=== PATIENT | male | born 1985 | race Caucasian/White ===

== ENCOUNTER 2017-06-17 16:07 | Inpatient (IN) | payer MEDICARE, MEDICAID ==
[~2017-06-17] VITALS: Ht 165.1 cm; Wt 59.0 kg
[~2017-06-17 16:07] MED LIST: AMLO10TA80 PO; CARV6.2548 PO; CINA30 PO; LOSA50TA20 PO; NEPVIT PO; SEVE800T8 PO
[2017-06-17] MEDS ORDERED: HYDROCODONE/ACETAMINOPHEN 5/325MG TABLET PO ONE (23:00)
[2017-06-17] MEDS ORDERED: KETOROLAC 60MG/2ML VIAL IM ONE (23:00)
[2017-06-18 01:05] LABS: BASOPHILS % 0.7 % (0.0-2.0); EOSINOPHILS % 0.2 % (0.0-5.0); HEMOGLOBIN. 11.7 g/dL (14.0-18.0); LYMPHOCYTES % 15.6 % (20.0-50.0); MEAN CORPUSCULAR HEMOGLOBIN 30.5 pg (28.0-32.0); MEAN CORPUSCULAR VOLUME 91.5 fL (80.0-94.0); MEAN PLATELET VOLUME 8.3 fl (7.4-10.4); MONOCYTES % 7.1 % (2.0-8.0); NEUTROPHILS % 76.4 % (40.0-76.0); PLATELET 205 x1000/uL (130-400); RED BLOOD CELL COUNT 3.83 mill/uL (4.7-6.1); RED CELL DISTRIBUTION WIDTH 15.4 % (11.6-14.6)
[2017-06-18 03:00] VITALS: BP 126/86
[2017-06-18] MEDS ORDERED: LEVO75TA7 PO (03:01)
[2017-06-18] MEDS ORDERED: MORPHINE SULFATE 2 MG/ML CPJ (NOT FOR IM USE) IV PRN (03:45)
[2017-06-18] MEDS ORDERED: ENOXAPARIN 40MG/0.4ML SYR SUBCUT ONE (03:45)
[2017-06-18] MEDS ORDERED: ONDANSETRON HCL 4MG/2ML VIAL IV PRN (03:45)
[2017-06-18 04:00] VITALS: BP 128/89
[2017-06-18] MEDS: HYDROMORPHONE HCL/PF 2MG/ML CPJ IV PRN ×3 (06:31→18:41)
[2017-06-18 08:00] VITALS: BP 134/87
[2017-06-18] MEDS ORDERED: ENOXAPARIN 30MG/0.3ML SYR SUBCUT SCH (09:00)
[2017-06-18 12:00] VITALS: BP 139/96
[2017-06-18] MEDS: AMLODIPINE 10MG TABLET PO SCH (12:50)
[2017-06-18] MEDS: SEVELAMER CARBONATE 800 MG TABLET PO SCH ×2 (12:50→18:40)
[2017-06-18 16:00] VITALS: BP 134/86
[2017-06-18] MEDS: CINACALCET HCL 90MG TABLET PO SCH (18:40)
[2017-06-18 20:00] VITALS: BP 140/96
[2017-06-18] MEDS: CARVEDILOL 6.25 MG TABLET PO SCH (20:55)
[2017-06-18] MEDS ORDERED: ACETAMINOPHEN 500MG TABLET PO PRN (22:00)
[2017-06-18] MEDS ORDERED: BISACODYL 5MG TABLET PO PRN (22:00)
[2017-06-18] MEDS ORDERED: BISACODYL 10MG SUPP PR PRN (22:00)
[2017-06-18] MEDS ORDERED: GUAIFENESIN-DM 200MG-20MG/10ML UDC PO PRN (22:15)
[2017-06-18] MEDS ORDERED: DIPHENHYDRAMINE 50MG/ML VIAL IV PRN (22:15)
[2017-06-19] VITALS: BP 132/85
[2017-06-19] MEDS: HYDROMORPHONE HCL/PF 2MG/ML CPJ IV PRN ×4 (00:20→18:34)
[2017-06-19 04:00] VITALS: BP 134/87
[2017-06-19 07:30] LABS: BASOPHILS % 0.8 % (0.0-2.0); HEMATOCRIT. 31.6 % (42.0-52.0); HEMOGLOBIN. 10.5 g/dL (14.0-18.0); LYMPHOCYTES % 20.3 % (20.0-50.0); MEAN CORPUSCULAR HEMOGLOBIN 30.4 pg (28.0-32.0); MEAN CORPUSCULAR VOLUME 91.8 fL (80.0-94.0); MEAN PLATELET VOLUME 8.9 fl (7.4-10.4); MONOCYTES % 6.4 % (2.0-8.0); NEUTROPHILS % 69.5 % (40.0-76.0); PLATELET 168 x1000/uL (130-400); RED BLOOD CELL COUNT 3.44 mill/uL (4.7-6.1); RED CELL DISTRIBUTION WIDTH 15.2 % (11.6-14.6)
[2017-06-19 07:42] LABS: INR 1.2; PARTIAL THROMBOPLASTIN TIME 35.2 sec (23.4-31.0)
[2017-06-19 08:00] VITALS: BP 139/85
[2017-06-19] MEDS: AMLODIPINE 10MG TABLET PO SCH (08:30)
[2017-06-19] MEDS: CINACALCET HCL 90MG TABLET PO SCH ×2 (08:30→18:20)
[2017-06-19] MEDS: LOSARTAN POTASSIUM 50 MG TABLET PO SCH (08:31)
[2017-06-19] MEDS: FOLIC ACID/VITAMIN B COMP W-C TABLET PO SCH (08:31)
[2017-06-19] MEDS: CARVEDILOL 6.25 MG TABLET PO SCH ×2 (08:31→20:50)
[2017-06-19] MEDS: DOCUSATE SODIUM 100MG CAPSULE PO SCH ×2 (08:31→17:00)
[2017-06-19] MEDS: SEVELAMER CARBONATE 800 MG TABLET PO SCH ×3 (08:31→18:20)
[2017-06-19 08:34] LABS: PHOSPHORUS 6.7 mg/dL (2.5-4.9)
[2017-06-19] MEDS: LEVOTHYROXINE SODIUM 75MCG TABLET PO SCH (08:45)
[2017-06-19] MEDS: SODIUM POLYSTYRENE SULFONATE 15 G/60 ML BOT PO SCH ×2 (10:15→10:44)
[2017-06-19 12:00] VITALS: BP 114/70
[2017-06-19 16:00] VITALS: BP 125/89
[2017-06-19 20:00] VITALS: BP 118/75
[2017-06-20] VITALS: BP 116/72
[2017-06-20 04:00] VITALS: BP 143/70
[2017-06-20] MEDS: HYDROMORPHONE HCL/PF 2MG/ML CPJ IV PRN ×3 (06:47→21:16)
[2017-06-20 08:00] VITALS: BP 129/79
[2017-06-20] MEDS: DOCUSATE SODIUM 100MG CAPSULE PO SCH ×2 (08:27→18:08)
[2017-06-20] MEDS: CINACALCET HCL 90MG TABLET PO SCH ×2 (08:27→18:08)
[2017-06-20] MEDS: CARVEDILOL 6.25 MG TABLET PO SCH ×2 (08:28→21:15)
[2017-06-20] MEDS: LEVOTHYROXINE SODIUM 75MCG TABLET PO SCH (08:28)
[2017-06-20] MEDS: SEVELAMER CARBONATE 800 MG TABLET PO SCH ×3 (08:28→18:08)
[2017-06-20] MEDS: FOLIC ACID/VITAMIN B COMP W-C TABLET PO SCH (08:28)
[2017-06-20] MEDS: AMLODIPINE 10MG TABLET PO SCH (08:28)
[2017-06-20] MEDS: LOSARTAN POTASSIUM 50 MG TABLET PO SCH (08:32)
[2017-06-20 12:00] VITALS: BP 126/80
[2017-06-20 16:00] VITALS: BP 127/78
[2017-06-20 20:00] VITALS: BP 112/71
[2017-06-21] VITALS: BP 103/72
[2017-06-21] MEDS: HYDROMORPHONE HCL/PF 2MG/ML CPJ IV PRN ×3 (02:50→15:22)
[2017-06-21 04:00] VITALS: BP 120/79
[2017-06-21 08:00] VITALS: BP 124/93
[2017-06-21] MEDS: CARVEDILOL 6.25 MG TABLET PO SCH (08:45)
[2017-06-21] MEDS: SEVELAMER CARBONATE 800 MG TABLET PO SCH ×2 (08:45→12:38)
[2017-06-21] MEDS: DOCUSATE SODIUM 100MG CAPSULE PO SCH (08:45)
[2017-06-21] MEDS: CINACALCET HCL 90MG TABLET PO SCH (08:45)
[2017-06-21] MEDS: FOLIC ACID/VITAMIN B COMP W-C TABLET PO SCH (08:45)
[2017-06-21] MEDS: LOSARTAN POTASSIUM 50 MG TABLET PO SCH (08:46)
[2017-06-21] MEDS: LEVOTHYROXINE SODIUM 75MCG TABLET PO SCH (08:46)
[2017-06-21] MEDS: AMLODIPINE 10MG TABLET PO SCH (08:46)
[2017-06-21 12:00] VITALS: BP 115/71
[2017-06-21 16:00] VITALS: BP 115/70
[2017-06-21 17:24] VITALS: BP 115/70
== END 2017-06-21 17:45 | disposition home or self-care (01) | DRG 562 ==
LOC: ER 17:00 → 7WST 06-18 00:35 → ENRESERV 06-18 01:17
PROVIDERS: ADMIT Internal Medicine Nephrology; ATTEND Specialist
PROC: 5A1D70Z Performance of Urinary Filtration, Intermittent, Less than 6 Hours Per Day (ICD-10-PCS; principal; 2017-06-20)
DX: S42.465A Nondisplaced fracture of medial condyle of left humerus, initial encounter for closed fracture (principal); N18.6 End stage renal disease; I12.0 Hypertensive chronic kidney disease with stage 5 chronic kidney disease or end stage renal disease; E87.5 Hyperkalemia; N25.81 Secondary hyperparathyroidism of renal origin; N25.0 Renal osteodystrophy; D63.1 Anemia in chronic kidney disease; E89.0 Postprocedural hypothyroidism; Z96.641 Presence of right artificial hip joint; Z91.81 History of falling; Z99.2 Dependence on renal dialysis; Z79.899 Other long term (current) drug therapy; W51.XXXA Accidental striking against or bumped into by another person, initial encounter; Y93.89 Activity, other specified; Y92.098 Other place in other non-institutional residence as the place of occurrence of the external cause; Y99.8 Other external cause status
CPT/HCPCS: 36415; 71010; 73030; 73060; 73070; 73090; 80048; 80069; 85025; 85610; 85730; 93005; 96372; 96374; 96375; 99285; A4565; J1170; J1650; J1885; J2270; J7030

== ENCOUNTER 2022-01-14 16:43 | Emergency (ER) | payer MEDICARE, MEDICAID ==
[~2022-01-14] VITALS: Ht 152.4 cm; Wt 76.0 kg
[~2022-01-14 16:43] MED LIST changes: +LEVO75TA7 PO; -LOSA50TA20 PO; +LOSA50TA41 PO
[2022-01-14] MEDS ORDERED: MORPHINE SULFATE 10 MG/ML CPJ IM ONE (18:00)
[2022-01-15] MEDS ORDERED: IBUP-2028 MT (00:05)
[2022-01-15] MEDS ORDERED: MORPHINE SULFATE 10 MG/ML CPJ IM ONE (01:00)
[2022-01-15 01:36] VITALS: BP 133/74
== END 2022-01-15 01:36 | disposition home or self-care (01) ==
LOC: ER 16:43
DX: M25.551 Pain in right hip (principal); I10 Essential (primary) hypertension; Z99.2 Dependence on renal dialysis; Z79.899 Other long term (current) drug therapy
CPT/HCPCS: 73502; 73552; 96372; 99284; J2270

== ENCOUNTER → 2022-12-23 | Outpatient (CLI) | payer MEDICARE, MEDICAID ==
[~2022-12-23] MED LIST changes: +IBUP-2028 MT; +IOHEXOL-300 100 ML BOTTLE ONE
== END | disposition home or self-care (01) ==
LOC: CT 10:05
PROVIDERS: ATTEND Specialist
DX: J90 Pleural effusion, not elsewhere classified (principal); E05.90 Thyrotoxicosis, unspecified without thyrotoxic crisis or storm
CPT/HCPCS: 71260; Q9967

== ENCOUNTER 2023-01-20 01:01 | Inpatient (IN) | payer MEDICARE, MEDICAID ==
[~2023-01-20] VITALS: Ht 152.4 cm; Wt 61.9 kg
[2023-01-20] VITALS (13 sets, daily range): BP systolic 112–157; BP diastolic 76–97
[~2023-01-20 01:01] MED LIST changes: -IOHEXOL-300 100 ML BOTTLE ONE
[2023-01-20] MEDS ORDERED: LABETALOL 5MG/ML SYR 20 MG/4 ML SYRINGE IV ONE (01:30)
[2023-01-20 01:45] LABS: BASOPHILS % 0.7 % (0.0-2.0); HEMATOCRIT. 31.5 % (42.0-52.0); HEMOGLOBIN. 10.6 g/dL (14.0-18.0); LYMPHOCYTES % 10.5 % (20.0-50.0); MEAN CORPUSCULAR HEMOGLOBIN 32.1 pg (28.0-32.0); MEAN CORPUSCULAR VOLUME 95.3 fL (80.0-94.0); MEAN PLATELET VOLUME 8.7 fl (7.4-10.4); MONOCYTES % 3.8 % (2.0-8.0); PLATELET 129 x1000/uL (130-400); RED CELL DISTRIBUTION WIDTH 15.2 % (11.6-14.6)
[2023-01-20 01:52] LABS: CHLORIDE 108 mEq/L (98-107)
[2023-01-20] MEDS ORDERED: COR6 PO (12:20)
[2023-01-20] MEDS ORDERED: GUAIFENESIN 200MG/10ML SUGAR FREE UDC PO PRN (12:45)
[2023-01-20] MEDS ORDERED: TRAMADOL 50MG TABLET PO PRN (12:45)
[2023-01-20] MEDS ORDERED: ACETAMINOPHEN 325MG TABLET PO PRN (12:45)
[2023-01-20] MEDS ORDERED: HYDROCODONE/ACETAMINOPHEN 5/325MG TABLET PO PRN (12:45)
[2023-01-20] MEDS ORDERED: ENOXAPARIN 40MG/0.4ML SYR SUBCUT SCH (12:45)
[2023-01-20] MEDS ORDERED: CLONIDINE 0.1MG TABLET PO PRN (12:45)
[2023-01-20] MEDS ORDERED: IPRATROPIUM/ALBUTEROL 0.5-3(2.5)MG/3ML NEB HHN PRN (12:45)
[2023-01-20] MEDS ORDERED: DOCUSATE SODIUM 100MG CAPSULE PO PRN (12:45)
[2023-01-20] MEDS ORDERED: NALOXONE HCL 0.4MG/ML VIAL IV PRN (12:45)
[2023-01-20] MEDS ORDERED: INFLUENZA VACCINE 05/PF 0.5 ML SYRINGE IM ONE (14:30)
[2023-01-20] MEDS: SEVELAMER CARBONATE 800 MG TABLET PO SCH ×2 (14:44→18:40)
[2023-01-20] MEDS: ENOXAPARIN 30MG/0.3ML SYR SUBCUT SCH (14:44)
[2023-01-20] MEDS: LEVOTHYROXINE SODIUM 75MCG TABLET PO SCH (14:44)
[2023-01-20 17:21] LABS: T4 FREE 0.97 ng/dL (0.76-1.46)
[2023-01-20 18:27] LABS: HEPATITIS B SURFACE ANTIGEN NEGATIVE
[2023-01-20] MEDS: CINACALCET HCL 30MG TABLET PO SCH (18:40)
[2023-01-20] MEDS: ONDANSETRON HCL 4MG/2ML INJ IV PRN (18:40)
[2023-01-21] VITALS (14 sets, daily range): BP systolic 108–127; BP diastolic 64–81
[2023-01-21] MEDS: LEVOTHYROXINE SODIUM 75MCG TABLET PO SCH (05:54)
[2023-01-21 07:39] LABS: BASOPHILS % 0.8 % (0.0-2.0); EOSINOPHILS % 3.1 % (0.0-5.0); HEMATOCRIT. 27.7 % (42.0-52.0); HEMOGLOBIN. 9.2 g/dL (14.0-18.0); LYMPHOCYTES % 27.7 % (20.0-50.0); MEAN CORPUSCULAR VOLUME 96.6 fL (80.0-94.0); MEAN PLATELET VOLUME 9.8 fl (7.4-10.4); MONOCYTES % 6.1 % (2.0-8.0); NEUTROPHILS % 62.3 % (40.0-76.0); PLATELET 116 x1000/uL (130-400); RED BLOOD CELL COUNT 2.87 mill/uL (4.7-6.1); RED CELL DISTRIBUTION WIDTH 15.7 % (11.6-14.6)
[2023-01-21 08:26] LABS: CHLORIDE 106 mEq/L (98-107); HDL CHOLESTEROL 40 mg/dL (40-59); LDL CHOLESTEROL 59 mg/dL (5-100)
[2023-01-21 08:34] LABS: FOLIC ACID (FOLATE) SERUM 2.4 ng/mL (>5.38)
[2023-01-21] MEDS: FOLIC ACID/VITAMIN B COMP W-C TABLET PO SCH (11:09)
[2023-01-21] MEDS: CINACALCET HCL 30MG TABLET PO SCH ×2 (11:09→17:00)
[2023-01-21] MEDS: AMLODIPINE 10MG TABLET PO SCH (11:10)
[2023-01-21] MEDS: CARVEDILOL 6.25 MG TABLET PO SCH (11:10)
[2023-01-21] MEDS: SEVELAMER CARBONATE 800 MG TABLET PO SCH ×3 (11:10→17:00)
[2023-01-21] MEDS: ONDANSETRON HCL 4MG/2ML INJ IV PRN (11:17)
[2023-01-21] MEDS: ENOXAPARIN 30MG/0.3ML SYR SUBCUT SCH (13:21)
[2023-01-21] MEDS: PANTOPRAZOLE 40MG DR TABLET PO SCH (15:30)
[2023-01-21] MEDS ORDERED: EPOETIN ALFA-EPBX 4,000 UNIT/ML VIAL SUBCUT SCH (21:00)
[2023-01-22] VITALS: BP 117/72
[2023-01-22 04:00] VITALS: BP 117/75
[2023-01-22] MEDS: PANTOPRAZOLE 40MG DR TABLET PO SCH (06:00)
[2023-01-22] MEDS ORDERED: LEVOTHYROXINE SODIUM 100MCG TABLET PO SCH (06:40)
[2023-01-22 06:56] LABS: EOSINOPHILS % 2.6 % (0.0-5.0); HEMATOCRIT. 26.2 % (42.0-52.0); HEMOGLOBIN. 8.9 g/dL (14.0-18.0); LYMPHOCYTES % 24.5 % (20.0-50.0); MEAN CORPUSCULAR HEMOGLOBIN 32.5 pg (28.0-32.0); MEAN CORPUSCULAR VOLUME 96.1 fL (80.0-94.0); MEAN PLATELET VOLUME 9.5 fl (7.4-10.4); MONOCYTES % 6.7 % (2.0-8.0); NEUTROPHILS % 65.2 % (40.0-76.0); PLATELET 111 x1000/uL (130-400); RED BLOOD CELL COUNT 2.72 mill/uL (4.7-6.1); RED CELL DISTRIBUTION WIDTH 15.6 % (11.6-14.6)
[2023-01-22 07:39] LABS: PHOSPHORUS 2.6 mg/dL (2.5-4.9)
[2023-01-22 08:00] VITALS: BP 147/85
[2023-01-22] MEDS: CARVEDILOL 6.25 MG TABLET PO SCH (09:46)
[2023-01-22] MEDS: AMLODIPINE 10MG TABLET PO SCH (09:46)
[2023-01-22] MEDS: FOLIC ACID/VITAMIN B COMP W-C TABLET PO SCH (09:46)
[2023-01-22] MEDS: CINACALCET HCL 30MG TABLET PO SCH (09:47)
[2023-01-22] MEDS: SEVELAMER CARBONATE 800 MG TABLET PO SCH ×2 (09:47→12:56)
[2023-01-22] MEDS: ONDANSETRON HCL 4MG/2ML INJ IV PRN (09:51)
[2023-01-22 12:00] VITALS: BP 118/83
[2023-01-22] MEDS: ENOXAPARIN 30MG/0.3ML SYR SUBCUT SCH (12:56)
[2023-01-22 13:44] VITALS: BP 118/83
[2023-01-23] MEDS ORDERED: CINACALCET HCL 90MG TABLET PO SCH (07:10)
[2023-01-23] MEDS ORDERED: FAMOTIDINE 20MG TABLET PO SCH (09:00)
== END 2023-01-22 14:00 | disposition home health service (06) | DRG 189 ==
LOC: ER 01:01 → 7EST 02:27
PROVIDERS: ADMIT Hospitalist; ATTEND Hospitalist
PROC: 5A1D70Z Performance of Urinary Filtration, Intermittent, Less than 6 Hours Per Day (ICD-10-PCS; principal; 2023-01-20)
PROC: 5A1D70Z Performance of Urinary Filtration, Intermittent, Less than 6 Hours Per Day (ICD-10-PCS; 2023-01-21)
DX: J96.01 Acute respiratory failure with hypoxia (principal); I50.33 Acute on chronic diastolic (congestive) heart failure; N18.6 End stage renal disease; I13.2 Hypertensive heart and chronic kidney disease with heart failure and with stage 5 chronic kidney disease, or end stage renal disease; E46 Unspecified protein-calorie malnutrition; E03.9 Hypothyroidism, unspecified; D63.1 Anemia in chronic kidney disease; D53.9 Nutritional anemia, unspecified; E53.8 Deficiency of other specified B group vitamins; Z96.649 Presence of unspecified artificial hip joint; Z99.2 Dependence on renal dialysis
CPT/HCPCS: 36415; 71045; 80048; 80053; 80061; 82607; 82746; 83735; 83880; 84100; 84439; 84443; 84484; 85025; 86705; 86709; 86803; 87340; 90686; 90935; 93306; 93970; 99291; J0885; J1650; J2405; J3490